=== PATIENT | male | born 1995 ===

== ENCOUNTER 2018-08-22 05:08 | Emergency (ER) | payer BC ==
[2018-08-22 05:08] VITALS: BMI 28.8
[2018-08-22] MEDS ORDERED: Sodium Chloride 0.9% 1,000 ML IV STA (05:58)
--- NOTE | 2018-08-22 06:02 | ED PDOC ---
HPI: Abdomen Time Seen by Provider: 08/22/18 05:21 Chief Complaint (Nursing): Abdominal Pain Chief Complaint (Provider): Abdominal / Back Pain History Per: Patient History/Exam Limitations: no limitations Onset/Duration Of Symptoms: Days (x1) Current Symptoms Are (Timing): Still Present Additional Complaint(s): 23 year old male presents to the ED for evaluation of diffuse lower abdominal pain radiating to his pelvic region and lower back pain associated with fever, h eadache, and nausea for the past day. Patient otherwise denies dysuria, diarrhea, vomiting, and history of kidney stones. PMD: none provided Past Medical History Reviewed: Historical Data, Nursing Documentation, Vital Signs Vital Signs: Last Vital Signs Temp 99.8 F H 08/22/18 05:16 Pulse 117 H 08/22/18 05:16 Resp 16 08/22/18 05:16 BP 167/107 H 08/22/18 05:16 Pulse Ox 100 08/22/18 05:16 - Medical History PMH: Denies: Depression Other PMH: IBS - Surgical History Surgical History: No Surg Hx - Family History Family History: States: Unknown Family Hx - Social History Current smoker - smoking cessation education provided: No Alcohol: Social Drugs: Denies - Home Medications Home Medications: Ambulatory Orders Medication Instructions Recorded Ciprofloxacin 0.3% [Ciloxan 0.3% 1 drop OD QID #1 bottle 05/10/17 Ophth SOLN] Dicyclomine [Dicyclomine HCl] 10 mg PO Q8 #10 cap 08/22/18 - Allergies Allergies/Adverse Reactions: Allergies Allergy/AdvReac Type Severity Reaction Status Date / Time No Known Allergies Allergy Verified 08/22/18 05:19 Review of Systems ROS Statement: Except As Marked, All Systems Reviewed And Found Negative Constitutional: Positive for: Fever Gastrointestinal: Positive for: Nausea, Abdominal Pain (diffuse lower radiating into pelvic region). Negative for: Vomiting, Diarrhea Genitourinary Male: Negative for: Dysuria Musculoskeletal: Positive for: Back Pain (lower) Neurological: Positive for: Headache Physical Exam - Reviewed Nursing Documentation Reviewed: Yes Vital Signs Reviewed: Yes - Physical Exam Appears: Positive for: No Acute Distress Head Exam: Positive for: ATRAUMATIC, NORMOCEPHALIC Skin: Positive for: Normal Color. Negative for: Rash Eye Exam: Positive for: Normal appearance ENT: Positive for: Normal ENT Inspection Neck: Positive for: Normal, Painless ROM, Supple Cardiovascular/Chest: Positive for: Tachycardia Respiratory: Positive for: Normal Breath Sounds. Negative for: Respiratory Distress Gastrointestinal/Abdominal: Positive for: Normal Exam, Soft, Tenderness (diffuse lower abdominal) Back: Positive for: Normal Inspection, L CVA Tenderness, R CVA Tenderness Extremity: Positive for: Normal ROM Neurologic/Psych: Positive for: Alert, Oriented (x3). Negative for: Motor/Sensory Deficits - Laboratory Results Result Diagrams: 08/22/18 06:13 08/22/18 06:13 - ECG O2 Sat by Pulse Oximetry: 100 (RA) Pulse Ox Interpretation: Normal Medical Decision Making Medical Decision Making: Time: 556 Initial Impression: abdominal and back pain, r/o kidney stones Initial Plan: --CMP --CBC with differential --Urine culture --Urinalysis --Normal saline IV --Toradol 15mg IV --Zofran 4mg IV 0700 Patient care endorsed from this provider to Dr. Reaves pending urine, CT, and reevaluation. Scribe Attestation: Documented by Margarita Lam acting as a scribe for Karin Padgett MD. Provider Scribe Attestation: All medical record entries made by the Scribe were at my direction and personally dictated by me. I have reviewed the chart and agree that the record accurately reflects my personal performance of the history, physical exam, medical decision making, and the department course for this patient. I have also personally directed, reviewed, and agree with the discharge instructions and disposition. Disposition - Clinical Impression Clinical Impression: Irritable bowel disease - Patient ED Disposition Is Patient to be Admitted: Transfer of Care - Disposition Referrals: Clement Calderon MD [Staff Provider] - Disposition: Transfer of Care Disposition Time: 07:00 Condition: FAIR Prescriptions: Dicyclomine [Dicyclomine HCl] 10 mg PO Q8 #10 cap Instructions: Irritable Bowel Syndrome Forms: [employer] [facility] ([place]) Patient Signed Over To: Willie Reaves
[2018-08-22 06:23] LABS: BASO % 0.6 % (0.0-2.0); EOS % 0.2 % (0.0-4.0); HEMOGLOBIN 14.8 g/dL (12.0-18.0); LYMPH # 1.3 K/uL (1.0-4.3); LYMPH % 23.9 % (20.0-40.0); MEAN CELL VOLUME 90.7 fl (80.0-94.0); MEAN CORPUSCULAR HEMOGLOBIN 31.7 pg (27.0-31.0); MEAN CORPUSCULAR HGB CONC 34.9 g/dL (33.0-37.0); MEAN PLATELET VOLUME 7.2 fl (7.2-11.7); MONO # 0.6 K/uL (0.0-0.8); MONO % 10.6 % (0.0-10.0); NEUT # 3.7 K/uL (1.8-7.0); NEUT % 64.7 % (50.0-75.0); NRBC % 0.1 % (0.0-0.0); RBC 4.68 Mil/uL (4.40-5.90); RED CELL DISTRIBUTION WIDTH 13.1 % (11.5-14.5); WHITE BLOOD COUNT 5.6 K/uL (4.8-10.8)
[2018-08-22 06:37] LABS: ALB/GLOB RATIO 1.1 (1.0-2.1); ALBUMIN 4.3 g/dL (3.5-5.0); ALT/SGPT 31 U/L (21-72); AST/SGOT 34 U/L (17-59); BLOOD UREA NITROGEN 8 mg/dl (9-20); CALCIUM 9.5 mg/dL (8.4-10.2); GFR NON-AFRICAN AMERICAN > 60
[2018-08-22 07:37] VITALS: BP 144/97; PULSE 84; RESP 18; TEMP 99
[2018-08-22 08:29] LABS: URINE BILIRUBIN NEGATIVE (NEGATIVE); URINE BLOOD NEGATIVE (NEGATIVE); URINE CLARITY CLEAR (Clear); URINE COLOR YELLOW (YELLOW); URINE GLUCOSE (UA) NEG (NEGATIVE); URINE LEUKOCYTE ESTERASE NEG Leu/uL (Negative); URINE PROTEIN NEGATIVE (NEGATIVE); URINE UROBILINOGEN 0.2-1.0 mg/dL (0.2-1.0)
--- NOTE | 2018-08-22 10:55 | ED PDOC ---
- Laboratory Results Result Diagrams: 08/22/18 06:13 08/22/18 06:13 - ECG O2 Sat by Pulse Oximetry: 99 Disposition - Clinical Impression Clinical Impression: Irritable bowel disease - POA Present On Arrival: None - Disposition Referrals: Clement Calderon MD [Staff Provider] - Disposition: Routine/Home Disposition Time: 10:55 Condition: FAIR Prescriptions: Dicyclomine [Dicyclomine HCl] 10 mg PO Q8 #10 cap Instructions: Irritable Bowel Syndrome Forms: [employer] ([place])
--- NOTE | 2018-08-22 11:30 | CT ---
Date of service: 2018-08-22 06:24:32 PROCEDURE: CT Abdomen and Pelvis . HISTORY: Abd pain COMPARISON: None. TECHNIQUE: Contiguous axial images of the abdomen and pelvis performed without oral or intravenous contrast material. Coronal and Sagittal reformats generated. Radiation dose: Total exam DLP = 762.54 mGy-cm. This CT exam was performed using one or more of the following dose reduction techniques: Automated exposure control, adjustment of the mA and/or kV according to patient size, and/or use of iterative reconstruction technique. FINDINGS: LOWER THORAX: Lung bases are clear. No infiltrate effusion or basilar pneumothorax. Heart size normal. No significant pericardial effusion. Small hiatal hernia. LIVER: Unremarkable. No gross lesion or ductal dilatation. GALLBLADDER AND BILE DUCTS: Gallbladder physiologically distended. No evidence of intraluminal gallbladder calculi. PANCREAS: Pancreas appears unremarkable without masses collections or calcifications.. SPLEEN: Spleen exhibits normal size and attenuation pattern without masses collections or calcifications.. ADRENALS: Unremarkable. KIDNEYS AND URETERS: Unremarkable. No stone or hydronephrosis. BLADDER: The urinary bladder incompletely distended which may in part account for thick-walled appearance. Correlation with urinalysis.. REPRODUCTIVE: Unremarkable. APPENDIX: The appendix is retrocecal and exhibits normal caliber without significant wall thickening however some minimal infiltration changes seen in adjacent periappendiceal fat-nonspecific. Clinical correlation recommended with history, physical exam and laboratory values.. BOWEL: Evaluation of the bowel is limited due to the lack of oral contrast material. Stomach is incompletely distended. Visualized loops of small bowel exhibit normal contour and caliber. No evidence of acute mechanical small bowel obstruction. Moderately large amount of stool is present throughout most of the colon consistent with fecal retention/constipation.. PERITONEUM: Unremarkable. No fluid collection. No free air.Small fat containing umbilical hernia. LYMPH NODES: There are a few small nonspecific mesenteric lymph nodes seen in the mid and right lower abdomen; rule out mild mesenteric adenitis.. VASCULATURE: Unremarkable. No aortic aneurysm. No aortic atherosclerotic calcification or mural plaque present. BONES: No fracture or destructive lesion. OTHER FINDINGS: None. IMPRESSION: No acute intraabdominal pathology. Findings consistent with constipation. The appendix is retrocecal and exhibits normal caliber without significant wall thickening however some minimal infiltration changes seen in adjacent periappendiceal fat- nonspecific. Clinical correlation recommended with history, physical exam and laboratory values.. Scattered small mesenteric lymph nodes are present; rule out mild mesenteric adenitis
[2018-08-23 23:13] VITALS: O2SAT 100
== END 2018-08-22 11:00 | disposition home or self-care (01) ==
LOC: H.ER 05:08
DX: K58.9 Irritable bowel syndrome, unspecified (principal)
CPT/HCPCS: 74176; 80053; 81003; 85025; 87086; 96374; 99283; J1885; J2405; J7030